=== PATIENT | male | born 1980 | race Caucasian/White ===

== ENCOUNTER 2020-02-08 11:24 | Emergency (ER) | payer OTHER ==
[~2020-02-08] VITALS: Ht 177.8 cm; Wt 93.0 kg
[~2020-02-08 11:24] MED LIST: NKHM
[2020-02-08] MEDS ORDERED: XARELTO1 EACH PO (13:53)
== END 2020-02-08 14:12 | disposition home or self-care (01) ==
LOC: ED 11:24
DX: I82.409 Acute embolism and thrombosis of unspecified deep veins of unspecified lower extremity (principal)